=== PATIENT | female | born 1950 | race Caucasian/White ===

== ENCOUNTER → 2016-10-04 | Outpatient (CLI) | payer MEDICARE, OTHER ==
[~2016-10-04] MED LIST: FOLIC ACID 1 MG1 MG PO
[2016-10-04 11:50] LABS: HEMOGLOBIN 11.8 gm/dl (12.3-15.3); RED BLOOD COUNT 3.99 M/UL (4.00-5.10)
[2016-10-04 12:16] LABS: BUN/CREATININE RATIO 57 (0-10)
== END ==
LOC: LAB 10:23
PROVIDERS: Nurse Practitioner Primary Care
DX: G40.909 Epilepsy, unspecified, not intractable, without status epilepticus (principal); I10 Essential (primary) hypertension; M81.0 Age-related osteoporosis without current pathological fracture; E61.1 Iron deficiency
CPT/HCPCS: 36415; 80053; 80061; 80185; 82728; 84443; 85025

== ENCOUNTER 2016-10-05 14:22 | Emergency (ER) | payer MEDICARE, OTHER | END 2016-10-05 17:40 | disposition home or self-care (01) | LOC: ER1 14:22 | DX: R03.1 Nonspecific low blood-pressure reading (principal); K21.9 Gastro-esophageal reflux disease without esophagitis; R11.10 Vomiting, unspecified; Z88.8 Allergy status to other drugs, medicaments and biological substances | CPT/HCPCS: 99283 ==

== ENCOUNTER 2020-12-15 08:52 | Emergency (ER) | payer MEDICARE, OTHER ==
[~2020-12-15 08:52] MED LIST changes: +ABILIFY20 MG PO; +CALCIUM 600 +1 EAC7 PO; +CALMOSEPTINE OI71 GM TP; +CARAFATE 1 GM TA1 GM GT; +CLARITIN5 MG/5 ML PO; +COLACE 100MG C100 MG PO; +DILANTIN50 MG PO; +DULCOLAX10 MG PR; +DULCOLAX5 MG PO; +FEOSOL325 MG PO; +LAXATIVE SUPPO1 EACH PR; +MIRALAX17 GM PO; +NUTRITIONAL SH PO; +OMNICEF 300 MG300 MG PO; +PROLIA INJ60 MG/1 ML SC; +PROTONIX40 MG PO; +RISAMINE OINTM113 GM TP; +SYNTHROID100 MCG PO; +THERAGRAN M TAB1 EA PO; +TRAZODONE HCL150 MG PO; +VITAMIN B-121000 MCG PO; +ZANTAC150 MG PO; +ZESTRIL10 MG PO; +ZOFRAN ODT 4 MG4 MG PO; +ZOFRAN4 MG PO
[2020-12-15 12:15] LABS: HEMOGLOBIN 10.4 gm/dl (12.3-15.3); RED BLOOD COUNT 4.27 M/UL (4.00-5.10); WHITE BLOOD COUNT 13.9 K/UL (4.5-11.0)
[2020-12-15 12:37] LABS: BUN/CREATININE RATIO 113 (0-10)
== END 2020-12-15 14:10 | disposition home or self-care (01) ==
LOC: ER1 08:52
PROVIDERS: Physician Assistant
DX: R11.10 Vomiting, unspecified (principal); R10.13 Epigastric pain; I10 Essential (primary) hypertension; G40.909 Epilepsy, unspecified, not intractable, without status epilepticus; Z88.8 Allergy status to other drugs, medicaments and biological substances
CPT/HCPCS: 80053; 83690; 85025; 85610; 99284

== ENCOUNTER 2020-12-19 00:39 | Emergency (ER) | payer MEDICARE, OTHER ==
[2020-12-19 02:27] LABS: RED BLOOD COUNT 2.69 M/UL (4.00-5.10); WHITE BLOOD COUNT 5.8 K/UL (4.5-11.0)
[2020-12-19 02:50] LABS: BUN/CREATININE RATIO 37 (0-10)
[2020-12-19 02:55] LABS: HEMOGLOBIN 6.5 gm/dl (12.3-15.3)
[2020-12-19 09:28] LABS: HEMOGLOBIN 8.8 gm/dl (12.3-15.3)
[2020-12-20 01:36] LABS: HEMOGLOBIN 8.7 gm/dl (12.3-15.3)
[2020-12-20 01:41] LABS: RED BLOOD COUNT 3.46 M/UL (4.00-5.10)
[2020-12-20 02:12] LABS: BUN/CREATININE RATIO 22 (0-10)
[2020-12-20] MEDS ORDERED: PROTONIX40 MG PO (03:36)
[2020-12-20] MEDS ORDERED: MIRALAX17 GM PO (03:36)
[2020-12-20] MEDS ORDERED: PHENERGAN 12.12.5 MG PR (03:50)
[2020-12-20] MEDS ORDERED: ADULT GLYCERIN1 EACH PR (03:51)
[2020-12-20] MEDS ORDERED: RISAMINE OINTM113 GM TOP (03:55)
[2020-12-20] MEDS ORDERED: TYLENOL EXTRA500 MG PO (03:56)
[2020-12-20] MEDS ORDERED: KEPPRA1000 MG PO (17:06)
[2020-12-20] MEDS ORDERED: AMITIZA24 MCG PO (19:14)
[2020-12-21 03:16] LABS: HEMOGLOBIN 8.4 gm/dl (12.3-15.3); RED BLOOD COUNT 3.35 M/UL (4.00-5.10); WHITE BLOOD COUNT 7.3 K/UL (4.5-11.0)
[2020-12-21 03:35] LABS: BUN/CREATININE RATIO 26 (0-10)
[2020-12-22] MEDS ORDERED: CARAFATE 1 GM TA1 GM PO (09:17)
== END 2020-12-22 19:50 | disposition admitted as inpatient to this hospital (09) ==
LOC: ER1 00:39
PROVIDERS: Physician Assistant
DX: K92.2 Gastrointestinal hemorrhage, unspecified (principal); D64.9 Anemia, unspecified; K22.10 Ulcer of esophagus without bleeding; E03.9 Hypothyroidism, unspecified; Z20.822 Contact with and (suspected) exposure to COVID-19
CPT/HCPCS: 36415; 36430; 71045; 80048; 80053; 81001; 82550; 82553; 83605; 83690; 83874; 84484; 85014; 85018; 85025; 86850; 86900; 86901; 86920; 87086; 93005; 96374; 99285; C9113; J1953; P9016; Q9967; U0002

== ENCOUNTER → 2021-01-01 | Outpatient (CLI) | payer OTHER, MEDICARE ==
[~2021-01-01] MED LIST changes: +ADULT GLYCERIN1 EACH PR; +AMITIZA24 MCG PO; +CARAFATE 1 GM TA1 GM PO; +KEPPRA1000 MG PO; +PHENERGAN 12.12.5 MG PR; +RISAMINE OINTM113 GM TOP; +TYLENOL EXTRA500 MG PO
== END ==
LOC: RAD 10:51
DX: K59.09 Other constipation (principal)
CPT/HCPCS: 74018

== ENCOUNTER 2021-01-15 01:01 | Inpatient (IN) | payer MEDICARE, OTHER ==
[~2021-01-15] VITALS: Ht 152.4 cm; Wt 66.0 kg
[2021-01-15 01:35] LABS: HEMOGLOBIN 7.4 gm/dl (12.3-15.3); RED BLOOD COUNT 3.47 M/UL (4.00-5.10); WHITE BLOOD COUNT 10.5 K/UL (4.5-11.0)
[2021-01-15 01:57] LABS: BUN/CREATININE RATIO 70 (0-10)
[2021-01-15 08:26] LABS: HEMOGLOBIN 8.8 gm/dl (12.3-15.3)
[2021-01-15] MEDS ORDERED: CALCIUM 600 +1 EAC7 PO (09:48)
[2021-01-15 15:16] LABS: HEMOGLOBIN 8.2 gm/dl (12.3-15.3)
[2021-01-15 22:34] LABS: HEMOGLOBIN 7.2 gm/dl (12.3-15.3)
--- NOTE | 2021-01-16 05:10 | NUR ---
1839 ER CALLED AND GAVE REPORT, AND WAS ADMITTED BY DR. RAMAN (DAYSHI) PT DIDN'T ARRIVE TO THE FLOOR UNTIL 2029. PART ONE AND HER HOME MEDICATIONS WAS COMPLETED AT 1146 AM WHILE IN THE ER, BUT NOT RECONCILED BY THE ADMITTING DRMelvi AND PT NOT GIVEN HER MEDICATION FOR EPLISEY. PT PLACED ON SEIZURE PRECAUTIONS. AT 2243 THE NURSE ASK THE HOSPITALIST FOR AN ONE TIME DOSE OF HER NIGHT TIME SEIZURE MEDICATION AND THE FOLLOWING MEDICATIONS WAS GIVEN. KEPPRA 1500 MG, DILANTIN 100 MG AND TRAZADONE 150MG. 2354 PT BEGAN TO HAVE A SEIZURE. DR. CONTRERAS NOTIFIED AND A ORDER FOR ATIVAN 1 MG IVP ONE TIME. AFTER GIVEN TO THE PT THE SEIZURE STOPPED. PT COULD RESPOND BUT WAS VERY DROWSY EXPECTED. V/S WITHIN NORMAL LIMITS CONTINUED TO MONITOR.
[2021-01-16 07:04] LABS: RED BLOOD COUNT 2.88 M/UL (4.00-5.10); WHITE BLOOD COUNT 7.7 K/UL (4.5-11.0)
[2021-01-16 07:08] LABS: HEMOGLOBIN 6.7 gm/dl (12.3-15.3)
[2021-01-16 07:15] LABS: BUN/CREATININE RATIO 39 (0-10)
[2021-01-17 07:33] LABS: WHITE BLOOD COUNT 7.3 K/UL (4.5-11.0)
[2021-01-17 07:34] LABS: RED BLOOD COUNT 4.18 M/UL (4.00-5.10)
[2021-01-17 07:39] LABS: BUN/CREATININE RATIO 10 (0-10)
[2021-01-18 07:18] LABS: HEMOGLOBIN 9.4 gm/dl (12.3-15.3); RED BLOOD COUNT 3.89 M/UL (4.00-5.10)
[2021-01-18 07:35] LABS: BUN/CREATININE RATIO 16 (0-10)
[2021-01-18 16:02] LABS: BUN/CREATININE RATIO 17 (0-10)
[2021-01-19 07:31] LABS: HEMOGLOBIN 9.2 gm/dl (12.3-15.3); RED BLOOD COUNT 3.94 M/UL (4.00-5.10); WHITE BLOOD COUNT 5.7 K/UL (4.5-11.0)
[2021-01-19 07:42] LABS: BUN/CREATININE RATIO 13 (0-10)
== END 2021-01-19 22:20 | disposition short-term general hospital (02) | DRG 378 ==
LOC: ER1 01:01 → CDU 08:26 → MED SURG 4 09:02
PROVIDERS: Family Medicine; Physician Assistant; ADMIT Internal Medicine
PROC: 30233N1 Transfusion of Nonautologous Red Blood Cells into Peripheral Vein, Percutaneous Approach (ICD-10-PCS; principal; 2021-01-15)
DX: K92.2 Gastrointestinal hemorrhage, unspecified (principal); D62 Acute posthemorrhagic anemia; Z20.822 Contact with and (suspected) exposure to COVID-19; I10 Essential (primary) hypertension; E03.9 Hypothyroidism, unspecified; G40.909 Epilepsy, unspecified, not intractable, without status epilepticus; K56.41 Fecal impaction; M81.0 Age-related osteoporosis without current pathological fracture; F31.9 Bipolar disorder, unspecified; Z90.49 Acquired absence of other specified parts of digestive tract; Z88.6 Allergy status to analgesic agent; Z99.3 Dependence on wheelchair; Z87.440 Personal history of urinary (tract) infections
CPT/HCPCS: 36415; 36430; 71045; 80048; 80053; 81001; 82272; 82550; 82553; 83690; 83735; 83874; 84484; 85014; 85018; 85025; 85027; 86850; 86900; 86901; 86920; 96374; 96375; 99285; C9113; J2060; J2405; J2550; J7030; J7050; P9016; Q9967; U0002

== ENCOUNTER 2021-01-26 07:32 | Emergency (ER) | payer MEDICARE, OTHER ==
[2021-01-26 08:35] LABS: HEMOGLOBIN 10.4 gm/dl (12.3-15.3); RED BLOOD COUNT 4.44 M/UL (4.00-5.10); WHITE BLOOD COUNT 7.8 K/UL (4.5-11.0)
[2021-01-26 08:39] LABS: BUN/CREATININE RATIO 61 (0-10)
[2021-01-26] MEDS ORDERED: MIRALAX 119 GR119 GM PO (14:41)
== END 2021-01-26 15:00 | disposition home or self-care (01) ==
LOC: ER1 07:32
PROVIDERS: Emergency Medicine
DX: K56.41 Fecal impaction (principal); I10 Essential (primary) hypertension
CPT/HCPCS: 80053; 82270; 83605; 83690; 83735; 85025; 85610; 85730; 86850; 86900; 86901; 96374; 96375; 99284; C9113; J2405; Q9967

== ENCOUNTER → 2021-02-10 | Day surgery (SDC) | payer MEDICARE, OTHER ==
[~2021-02-10] MED LIST changes: +MIRALAX 119 GR119 GM PO
== END | disposition home or self-care (01) ==
LOC: OR 08:31
DX: K92.2 Gastrointestinal hemorrhage, unspecified (principal); D50.0 Iron deficiency anemia secondary to blood loss (chronic); K64.0 First degree hemorrhoids; K59.09 Other constipation; I10 Essential (primary) hypertension; K44.0 Diaphragmatic hernia with obstruction, without gangrene; K21.01 Gastro-esophageal reflux disease with esophagitis, with bleeding; E03.9 Hypothyroidism, unspecified; Z86.010 Personal history of colon polyps; Z88.8 Allergy status to other drugs, medicaments and biological substances; Z79.891 Long term (current) use of opiate analgesic; Z79.899 Other long term (current) drug therapy
CPT/HCPCS: J2704; J7040

== ENCOUNTER 2021-03-18 09:37 | Emergency (ER) | payer MEDICARE, OTHER ==
[2021-03-18 11:07] LABS: RED BLOOD COUNT 3.4 M/UL (4.00-5.10); WHITE BLOOD COUNT 9.2 K/UL (4.5-11.0)
[2021-03-18 11:25] LABS: HEMOGLOBIN 5.7 gm/dl (12.3-15.3)
[2021-03-18 11:31] LABS: BUN/CREATININE RATIO 59 (0-10)
== END 2021-03-18 19:56 | disposition short-term general hospital (02) ==
LOC: ER1 09:37
PROVIDERS: Emergency Medicine
DX: K92.2 Gastrointestinal hemorrhage, unspecified (principal); N39.0 Urinary tract infection, site not specified; K56.41 Fecal impaction; D64.9 Anemia, unspecified; R91.8 Other nonspecific abnormal finding of lung field; I10 Essential (primary) hypertension; Z20.822 Contact with and (suspected) exposure to COVID-19
CPT/HCPCS: 36430; 71045; 80053; 81001; 82550; 82553; 83874; 84484; 85025; 85610; 85730; 86850; 86900; 86901; 86920; 87040; 87086; 93005; 96365; 96366; 96375; 99285; C9113; J0696; J7050; P9016; U0002

== ENCOUNTER 2021-03-27 09:51 | Inpatient (IN) | payer MEDICARE, OTHER ==
[~2021-03-27] VITALS: Ht 152.4 cm; Wt 57.2 kg
[2021-03-27 11:19] LABS: HEMOGLOBIN 9.9 gm/dl (12.3-15.3); RED BLOOD COUNT 4.79 M/UL (4.00-5.10); WHITE BLOOD COUNT 12.4 K/UL (4.5-11.0)
[2021-03-27 11:47] LABS: BUN/CREATININE RATIO 97 (0-10)
[2021-03-27 19:23] LABS: HEMOGLOBIN 7.8 gm/dl (12.3-15.3)
[2021-03-28 07:36] LABS: HEMOGLOBIN 7.8 gm/dl (12.3-15.3)
[2021-03-28 07:39] LABS: RED BLOOD COUNT 3.81 M/UL (4.00-5.10); WHITE BLOOD COUNT 8.6 K/UL (4.5-11.0)
[2021-03-28 08:09] LABS: BUN/CREATININE RATIO 89 (0-10)
[2021-03-28 10:39] LABS: HEMOGLOBIN 7.2 gm/dl (12.3-15.3)
[2021-03-29 07:54] LABS: WHITE BLOOD COUNT 10.6 K/UL (4.5-11.0)
[2021-03-29 08:14] LABS: HEMOGLOBIN 6.1 gm/dl (12.3-15.3); RED BLOOD COUNT 3.1 M/UL (4.00-5.10)
[2021-03-29 08:21] LABS: BUN/CREATININE RATIO 64 (0-10)
[2021-03-30 06:56] LABS: HEMOGLOBIN 8.6 gm/dl (12.3-15.3); WHITE BLOOD COUNT 8.5 K/UL (4.5-11.0)
[2021-03-30 06:57] LABS: RED BLOOD COUNT 3.95 M/UL (4.00-5.10)
[2021-03-30 07:43] LABS: BUN/CREATININE RATIO 22 (0-10)
[2021-03-30 16:20] LABS: BUN/CREATININE RATIO 14 (0-10)
[2021-03-31 06:46] LABS: HEMOGLOBIN 8.4 gm/dl (12.3-15.3); WHITE BLOOD COUNT 6.3 K/UL (4.5-11.0)
[2021-03-31 07:53] LABS: BUN/CREATININE RATIO 19 (0-10)
[2021-04-01 07:05] LABS: HEMOGLOBIN 8.9 gm/dl (12.3-15.3); RED BLOOD COUNT 4.06 M/UL (4.00-5.10)
[2021-04-01 07:38] LABS: BUN/CREATININE RATIO 14 (0-10)
[2021-04-02 07:16] LABS: HEMOGLOBIN 8.6 gm/dl (12.3-15.3); RED BLOOD COUNT 3.94 M/UL (4.00-5.10); WHITE BLOOD COUNT 6.3 K/UL (4.5-11.0)
[2021-04-03 06:16] LABS: HEMOGLOBIN 9.2 gm/dl (12.3-15.3); RED BLOOD COUNT 4.16 M/UL (4.00-5.10); WHITE BLOOD COUNT 6.3 K/UL (4.5-11.0)
[2021-04-03 06:32] LABS: BUN/CREATININE RATIO 40 (0-10)
[2021-04-04 07:36] LABS: BUN/CREATININE RATIO 46 (0-10)
[2021-04-05 09:56] LABS: BUN/CREATININE RATIO 64 (0-10)
[2021-04-05] MEDS ORDERED: TRAZODONE HCL50 MG PO (14:51)
[2021-04-05] MEDS ORDERED: POTASSIUM CHLO20 ME1 PO (14:57)
--- NOTE | 2021-04-05 18:19 | NUR ---
[facility] AT [facility].
--- NOTE | 2021-04-05 19:10 | NUR ---
APPROX. 1909: CALLED EMS FOR UPDATE ON TRANSFER. EMS STATED THAT THEY WOULD CALL ME BACK WITH AN ESTIMATED TIME. AWAITING PHONE CALL BACK.
--- NOTE | 2021-04-05 20:30 | NUR ---
APPROX. 2029: CALLED EMS FOR UPDATE ON TRANSFER. EMS STATING THAT IT WOULD BE ANOTHER HOUR BEFORE THEY WOULD BE ABLE TO COME [employer] PATIENT.
--- NOTE | 2021-04-05 21:30 | NUR ---
APPROX. 2129: CALLED EMS FOR UPDATE ON TRANSPORT OF PATIENT. EMS STATED THAT THEY WERE BEHIND DUE TO WRECKS, ETC. THEY STATED THAT THEY WOULD SEND SOMEONE TO GET PT SOON POSSIBLE.
== END 2021-04-06 01:22 | DRG 369 ==
LOC: ER1 09:51 → CDU 14:26 → MED SURG 4 14:26
PROVIDERS: Internal Medicine; Internal Medicine Gastroenterology; Physician Assistant; Physician Assistant Medical; ADMIT Internal Medicine
PROC: 30233N1 Transfusion of Nonautologous Red Blood Cells into Peripheral Vein, Percutaneous Approach (ICD-10-PCS; 2021-03-29)
PROC: 0DJ08ZZ Inspection of Upper Intestinal Tract, Via Natural or Artificial Opening Endoscopic (ICD-10-PCS; principal; 2021-03-29 11:30)
DX: K21.01 Gastro-esophageal reflux disease with esophagitis, with bleeding (principal); K44.0 Diaphragmatic hernia with obstruction, without gangrene; Z20.822 Contact with and (suspected) exposure to COVID-19; G40.802 Other epilepsy, not intractable, without status epilepticus; D62 Acute posthemorrhagic anemia; D63.8 Anemia in other chronic diseases classified elsewhere; G80.8 Other cerebral palsy; I10 Essential (primary) hypertension; E03.9 Hypothyroidism, unspecified; K44.9 Diaphragmatic hernia without obstruction or gangrene; E87.6 Hypokalemia; F31.9 Bipolar disorder, unspecified; K59.09 Other constipation; E88.09 Other disorders of plasma-protein metabolism, not elsewhere classified; M81.0 Age-related osteoporosis without current pathological fracture; Z88.8 Allergy status to other drugs, medicaments and biological substances; Z87.891 Personal history of nicotine dependence; Z55.8 Other problems related to education and literacy
CPT/HCPCS: 36415; 74018; 74230; 80048; 80053; 80185; 82270; 82728; 83540; 83550; 83690; 83735; 84132; 85014; 85018; 85025; 85027; 86850; 86900; 86901; 86920; 92610; 92611-GN; 96374; 96375; 96376; 99285; C9113; G0378; J1756; J1953; J2060; J2704; J7030; J7040; P9016; U0002